=== PATIENT | female | born 1990 | race African-American/Black ===

== ENCOUNTER 2019-02-24 18:03 | Emergency (ER) | payer MEDICAID ==
[~2019-02-24] VITALS: Ht 162.6 cm; Wt 83.3 kg
[2019-02-24 18:10] VITALS: BP 116/57
--- NOTE | 2019-02-24 18:21 | NUR ---
CALLED AND THEN SENT TO L&D
== END 2019-02-24 19:03 ==
LOC: ED 18:13
DX: R10.9 Unspecified abdominal pain (principal); R11.0 Nausea; Z53.21 Procedure and treatment not carried out due to patient leaving prior to being seen by health care provider

== ENCOUNTER 2019-02-24 18:33 | Outpatient (CLI) | payer MEDICAID ==
[~2019-02-24] VITALS: Ht 162.6 cm; Wt 68.2 kg
[2019-02-24 19:04] LABS: MICROSCOPIC NOT IND
[2019-02-24 19:15] LABS: AMPHETAMINE SCREEN, URINE Negative (Negative); BARBITURATE SCREEN, URINE Negative (Negative); BENZODIAZEPINE SCREEN, URINE Negative (Negative); CANNABINOID SCREEN, URINE Negative (Negative); COCAINE SCREEN, URINE Negative (Negative); METHADONE SCREEN, URINE Negative (Negative); OPIATE SCREEN, URINE Negative (Negative)
== END 2019-02-24 22:00 | disposition home or self-care (01) ==
LOC: LAB 18:33 → LDOP 22:00
PROVIDERS: ATTEND Obstetrics & Gynecology Female Pelvic Medicine and Reconstructive Surgery
DX: O32.1XX0 Maternal care for breech presentation, not applicable or unspecified (principal); O26.892 Other specified pregnancy related conditions, second trimester; R10.9 Unspecified abdominal pain; Z3A.18 18 weeks gestation of pregnancy
CPT/HCPCS: 36415; 76805; 80307; 81003; 86592; 86762; 86803; 86850; 86900; 87086; 87340; 87806; 99201; G0463; G0475

== ENCOUNTER 2019-03-21 15:41 | Outpatient (CLI) | payer MEDICAID ==
[~2019-03-21] VITALS: Ht 167.6 cm; Wt 89.9 kg
[2019-03-21] MEDS ORDERED: PREN1TAB60 PO (16:09)
[2019-03-21 16:15] VITALS: BP 109/61
[2019-03-21 16:28] LABS: MICROSCOPIC NOT IND
[2019-03-21 16:39] LABS: AMPHETAMINE SCREEN, URINE Negative (Negative); BARBITURATE SCREEN, URINE Negative (Negative); BENZODIAZEPINE SCREEN, URINE Negative (Negative); CANNABINOID SCREEN, URINE Negative (Negative); COCAINE SCREEN, URINE Negative (Negative); METHADONE SCREEN, URINE Negative (Negative); OPIATE SCREEN, URINE Negative (Negative)
== END 2019-03-21 17:06 | disposition home or self-care (01) ==
LOC: LDOP 15:41
PROVIDERS: ATTEND Obstetrics & Gynecology
DX: O26.892 Other specified pregnancy related conditions, second trimester (principal); R10.11 Right upper quadrant pain; Z3A.21 21 weeks gestation of pregnancy
CPT/HCPCS: 80307; 81003; 87086; 99211; G0463